=== PATIENT | male | born 2005 | race Hispanic/Latino ===

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

== ENCOUNTER 2025-05-20 18:41 | Emergency (ER) | payer OTHER ==
[2025-05-20] MEDS ORDERED: Ketorolac Tromethamine 30 MG (1 mL) VIAL ONE (19:29)
[2025-05-20] MEDS ORDERED: Acetaminophen 500 MG TAB ONE (19:29)
== END 2025-05-20 20:05 | disposition home or self-care (01) ==
LOC: ERS 18:41
DX: S93.401A Sprain of unspecified ligament of right ankle, initial encounter (principal); X50.0XXA Overexertion from strenuous movement or load, initial encounter; Y99.0 Civilian activity done for income or pay
CPT/HCPCS: 96372; 99283; J1885